=== PATIENT | male | born 1980 | race Caucasian/White ===

== ENCOUNTER 2017-08-06 10:55 | Emergency (ER) | payer OTHER ==
[~2017-08-06] VITALS: Ht 177.8 cm; Wt 131.5 kg
[~2017-08-06 10:55] MED LIST: DEPO-TESTO100 MG/1 M; GEMFIBROZIL 60600 MG PO; GLIPIZIDE ER5 MG PO; GLUCOPHAGE1000 MG PO; HYDROCODON-ACE1 EAC4 PO; HYDROCODON-ACE1 EAC5 PO; KEFLEX500 M1 PO; LANTUS SUBQ; LIPITOR40 MG PO; LISINOPRIL10 MG PO; MEDROLDOSEPACK PO; MOBIC15 MG PO; ULTRAM 50MG TAB50 MG PO
[2017-08-06] MEDS ORDERED: PREDNISONE 10 M10 MG PO (11:07)
[2017-08-06] MEDS ORDERED: TRAMADOL 50 MG50 MG PO (12:19)
[2017-08-06 12:33] VITALS: BP 166/85
== END 2017-08-06 12:34 | disposition home or self-care (01) ==
LOC: M.ERS 10:55
DX: M25.561 Pain in right knee (principal); M79.89 Other specified soft tissue disorders; R20.2 Paresthesia of skin